=== PATIENT | male | born 1985 | race Hispanic/Latino ===

== ENCOUNTER 2018-08-10 20:42 | Emergency (ER) | payer OTHER ==
[~2018-08-10] VITALS: Ht 180.3 cm; Wt 162.4 kg
[2018-08-10] MEDS ORDERED: ASPIRIN 81 MG CHEW TAB PO ONE (21:15)
--- NOTE | 2018-08-10 22:07 | Diagnostic Imaging Report ---
Exam: PA and lateral view of the chest Indication: Chest pain, left arm tingling Comparison: None Findings: The lungs are clear. No pleural effusions or pneumothorax. The cardiomediastinal silhouette and bones are unremarkable. Impression: No acute thoracic abnormality. Signed by: Dr. Lyndsay Franklin M.D. on 08/10/2018 10:02 PM
[2018-08-10] MEDS ORDERED: POTASSIUM CHLORIDE 20 MEQ TAB CR PO STA (23:11)
== END 2018-08-10 23:41 | disposition home or self-care (01) ==
LOC: FSED 20:42
DX: R07.89 Other chest pain (principal); I10 Essential (primary) hypertension; Z98.0 Intestinal bypass and anastomosis status
CPT/HCPCS: 71046; 80053; 80307; 81003; 82553; 84484; 85025; 93005; 99284

== ENCOUNTER 2021-11-14 15:32 | Emergency (ER) | payer OTHER ==
[~2021-11-14] VITALS: Ht 180.3 cm; Wt 159.9 kg
== END 2021-11-14 16:52 | disposition home or self-care (01) ==
LOC: FSED 15:38
DX: H53.8 Other visual disturbances (principal); R20.2 Paresthesia of skin; I10 Essential (primary) hypertension
CPT/HCPCS: 36415; 70450; 82948; 93005; 99283

== ENCOUNTER 2022-08-13 15:21 | Emergency (ER) | payer OTHER ==
[~2022-08-13] VITALS: Ht 154.9 cm; Wt 158.8 kg
[2022-08-13 16:37] VITALS: BP 175/94
== END 2022-08-13 16:39 | disposition home or self-care (01) ==
LOC: FSED 15:28
DX: I10 Essential (primary) hypertension (principal); E66.01 Morbid (severe) obesity due to excess calories; Z68.44 Body mass index [BMI] 60.0-69.9, adult; Z98.84 Bariatric surgery status; Z82.49 Family history of ischemic heart disease and other diseases of the circulatory system
CPT/HCPCS: 99282